=== PATIENT | female | born 1995 | race Caucasian/White ===

== ENCOUNTER → 2018-12-21 | Outpatient (CLI) | payer OTHER, SELFPAY ==
[2018-12-21 16:51] VITALS: BMI 47.0
[2018-12-21 19:27] LABS: Chlamydia Trachomatis by PCR Negative (Negative); Neisserai gonorrhoeae by PCR Negative (Negative); Probe Check PASS; Sample Adequacy Control PASS; Specimen Processing Control PASS
[2018-12-25 09:17] LABS: HPV Reflexed? NOT INDICATED
== END | disposition home or self-care (01) ==
LOC: LABSPEC 17:15
PROVIDERS: Referring Provider Obstetrics & Gynecology; Visit Provider Obstetrics & Gynecology
DX: O09.90 Supervision of high risk pregnancy, unspecified, unspecified trimester (principal); Z12.4 Encounter for screening for malignant neoplasm of cervix; Z3A.00 Weeks of gestation of pregnancy not specified
CPT/HCPCS: 87086; 87088; 87186; 87491; 87591; 87624; 88175; G0145

== ENCOUNTER → 2018-12-23 | Outpatient (CLI) | payer OTHER, SELFPAY ==
[2018-12-21 16:51] VITALS: BMI 47.0
[2018-12-23 09:37] LABS: Absolute Lymphocyte Count 1.58 X10^3/uL (0.83-4.51); Absolute Neutrophil Count 6.7 X10^3/uL (2.0-7.7); Basophil# 0.03 X10^3/uL; Basophil% 0.3 % (0-1); Eosinophil# 0.03 X10^3/uL; Eosinophils% 0.3 % (0-5); Hematocrit 36.5 % (37-47); Hemoglobin 12.1 g/dL (12.0-15.0); Lymphocyte # 1.58 X10^3/ul (4.0); Lymphocyte % 17.6 % (19-41); Mean Corp Hgb Conc 33.2 g/dL (32-36); Mean Corpuscular Hgb 28.9 pg (27.0-32.0); Mean Corpuscular Volume 87.1 fL (81-99); Mean Platelet Vol. 10.3 fl (6.2-12.0); Monocyte% 6.7 % (0-10); NRBC Flagged by Analyzer 0 % (0-5); Neutrophil # 6.71 X10^3/uL (2.7-7.7); Neutrophil % 74.7 % (47-70); Platelet Count 264 K/mm3 (150-450); RBC Distribution Width CV 13.3 % (11.6-14.6); RBC Distribution Width SD 41.5 fl (35.1-43.9); Red Blood Count 4.19 M/mm3 (4.2-5.4)
[2018-12-23 10:56] LABS: HIV - WCH Non-Reactive (Nonreactive); Hepatitis B Surface Antigen Non-Reactive (Nonreactive); Rubella IgG 44.6 IU/mL
[2018-12-30 02:05] LABS: Rapid Plasmin Reagin (RPR) NONREACTIVE (NONREACTIVE)
== END | disposition home or self-care (01) ==
PROVIDERS: Referring Provider Obstetrics & Gynecology; Visit Provider Obstetrics & Gynecology
DX: O09.90 Supervision of high risk pregnancy, unspecified, unspecified trimester (principal); Z3A.00 Weeks of gestation of pregnancy not specified
CPT/HCPCS: 36415; 85025; 86592; 86703; 86762; 86850; 86900; 86901; 87340

== ENCOUNTER → 2018-12-28 | Outpatient (CLI) | payer OTHER, SELFPAY ==
[2018-12-21 16:51] VITALS: BMI 47.0
[2018-12-28 11:52] LABS: Absolute Lymphocyte Count 1.36 X10^3/uL (0.83-4.51); Absolute Neutrophil Count 7.3 X10^3/uL (2.0-7.7); Basophil# 0.02 X10^3/uL; Basophil% 0.2 % (0-1); Eosinophil# 0.03 X10^3/uL; Eosinophils% 0.3 % (0-5); Hematocrit 36.4 % (37-47); Hemoglobin 11.8 g/dL (12.0-15.0); Lymphocyte # 1.36 X10^3/ul (4.0); Lymphocyte % 14.7 % (19-41); Mean Corp Hgb Conc 32.4 g/dL (32-36); Mean Corpuscular Hgb 27.9 pg (27.0-32.0); Mean Corpuscular Volume 86.1 fL (81-99); Mean Platelet Vol. 10.5 fl (6.2-12.0); Monocyte# 0.47 X10^3/uL; Monocyte% 5.1 % (0-10); NRBC Flagged by Analyzer 0 % (0-5); Neutrophil % 79.2 % (47-70); Platelet Count 228 K/mm3 (150-450); RBC Distribution Width CV 13.3 % (11.6-14.6); RBC Distribution Width SD 41.8 fl (35.1-43.9); Red Blood Count 4.23 M/mm3 (4.2-5.4); White Blood Count 9.2 K/mm3 (4.4-11.0)
[2018-12-28 12:25] LABS: Glucose Challenge Gest 1H 50g 110 mg/dL (70-140)
== END | disposition home or self-care (01) ==
LOC: PAVLAB 10:45
PROVIDERS: Referring Provider Obstetrics & Gynecology; Visit Provider Obstetrics & Gynecology
DX: Z34.90 Encounter for supervision of normal pregnancy, unspecified, unspecified trimester (principal); O09.90 Supervision of high risk pregnancy, unspecified, unspecified trimester; Z3A.00 Weeks of gestation of pregnancy not specified
CPT/HCPCS: 36415; 82950; 85025

== ENCOUNTER → 2019-01-18 14:17 | Outpatient (CLI) | payer OTHER, SELFPAY ==
[2019-01-18 09:08] VITALS: BMI 47.0
== END ==
PROVIDERS: Visit Provider Obstetrics & Gynecology
DX: O99.89 Other specified diseases and conditions complicating pregnancy, childbirth and the puerperium (principal); R82.71 Bacteriuria; Z3A.00 Weeks of gestation of pregnancy not specified
CPT/HCPCS: 87086; 87088

== ENCOUNTER → 2019-04-24 10:03 | Outpatient (CLI) | payer OTHER, SELFPAY ==
[2019-04-12 08:53] VITALS: BMI 47.0
[2019-04-24 10:15] LABS: Absolute Lymphocyte Count 1.34 X10^3/uL (0.83-4.51); Absolute Neutrophil Count 8.7 X10^3/uL (2.0-7.7); Basophil# 0.02 X10^3/uL; Basophil% 0.2 % (0-1); Eosinophil# 0.05 X10^3/uL; Eosinophils% 0.5 % (0-5); Hematocrit 36.1 % (37-47); Lymphocyte # 1.34 X10^3/ul (4.0); Lymphocyte % 12.7 % (19-41); Mean Corp Hgb Conc 33.2 g/dL (32-36); Mean Corpuscular Hgb 28.3 pg (27.0-32.0); Mean Corpuscular Volume 85.1 fL (81-99); Mean Platelet Vol. 10.6 fl (6.2-12.0); Monocyte# 0.44 X10^3/uL; Monocyte% 4.2 % (0-10); NRBC Flagged by Analyzer 0 % (0-5); Neutrophil # 8.69 X10^3/uL (2.7-7.7); Platelet Count 208 K/mm3 (150-450); RBC Distribution Width CV 13.2 % (11.6-14.6); RBC Distribution Width SD 40.7 fl (35.1-43.9); Red Blood Count 4.24 M/mm3 (4.2-5.4); White Blood Count 10.6 K/mm3 (4.4-11.0)
[2019-04-24 10:32] LABS: Glucose Challenge Gest 1H 50g 136 mg/dL (70-140)
== END ==
PROVIDERS: Visit Provider Obstetrics & Gynecology
DX: O09.90 Supervision of high risk pregnancy, unspecified, unspecified trimester (principal); Z3A.00 Weeks of gestation of pregnancy not specified
CPT/HCPCS: 82950; 85025

== ENCOUNTER → 2019-05-03 09:56 | Outpatient (CLI) | payer OTHER, SELFPAY ==
[2019-04-24 10:24] VITALS: BMI 47.0
[2019-05-03 11:30] LABS: Glucose GTT-Gestation. Fasting 80 mg/dL (<105)
[2019-05-03 13:01] LABS: Glucose GTT-Gestational 1 Hr 94 mg/dL (<190)
[2019-05-03 13:47] LABS: Glucose GTT-Gestational 3 Hr 97 L (<145)
[2019-05-03 14:01] LABS: Glucose GTT-Gestational 2 Hr 89 mg/dL (<165)
== END ==
PROVIDERS: Referring Provider Obstetrics & Gynecology; Visit Provider Obstetrics & Gynecology
DX: O99.810 Abnormal glucose complicating pregnancy (principal); Z3A.00 Weeks of gestation of pregnancy not specified
CPT/HCPCS: 36415; 82951; 82952

== ENCOUNTER → 2019-05-04 11:52 | Outpatient (CLI) | payer OTHER, SELFPAY ==
[2019-05-04 11:27] VITALS: BMI 47.0
[2019-05-04 12:21] LABS: Absolute Lymphocyte Count 1.41 X10^3/uL (0.83-4.51); Absolute Neutrophil Count 7.3 X10^3/uL (2.0-7.7); Basophil# 0.03 X10^3/uL; Basophil% 0.3 % (0-1); Eosinophil# 0.03 X10^3/uL; Eosinophils% 0.3 % (0-5); Hematocrit 34.9 % (37-47); Hemoglobin 11.8 g/dL (12.0-15.0); Lymphocyte # 1.41 X10^3/ul (4.0); Lymphocyte % 15.1 % (19-41); Mean Corp Hgb Conc 33.8 g/dL (32-36); Mean Corpuscular Hgb 28.3 pg (27.0-32.0); Mean Corpuscular Volume 83.7 fL (81-99); Mean Platelet Vol. 10.7 fl (6.2-12.0); Monocyte# 0.51 X10^3/uL; Monocyte% 5.5 % (0-10); NRBC Flagged by Analyzer 0 % (0-5); Neutrophil # 7.32 X10^3/uL (2.7-7.7); Neutrophil % 78.4 % (47-70); Platelet Count 241 K/mm3 (150-450); RBC Distribution Width CV 13.2 % (11.6-14.6); RBC Distribution Width SD 40.4 fl (35.1-43.9); Red Blood Count 4.17 M/mm3 (4.2-5.4); White Blood Count 9.3 K/mm3 (4.4-11.0)
[2019-05-04 12:32] LABS: ALB/GLOB Ratio 0.7 RATIO (0.9-2.4); AST(SGOT) 84 U/L (15-37); Alanine Aminotransfer ALT/SGPT 175 U/L (13-56); Albumin, Serum 2.6 g/dL (3.2-5.0); Alkaline Phosphatase 116 U/L (45-117); Anion Gap 7 (5-15); BUN 5 mg/dL (7-18); BUN/Creat Ratio 9.5 RATIO (10-20); Calcium,Total 8.8 mg/dL (8.5-10.1); Chloride 109 mmol/L (98-107); Creatinine, Serum 0.53 mg/dL (0.55-1.02); EST Glomerular Filtration Rate 149 mL/min (>60); Est Glom Filt Rate - Afr Amer 181 mL/min (>60); Globulin 3.9 g/dL (2.2-4.2); Glucose 78 mg/dL (74-106); LDH 198 U/L (84-246); Potassium 3.6 mmol/L (3.5-5.1); Protein, Total 6.5 g/dL (6.4-8.2); Sodium Level 138 mmol/L (136-145); Uric Acid 3.2 mg/dL (2.6-6.0)
[2019-05-04 13:57] LABS: Protein, Urine (Random) 43.8 mg/dL (<11.9); Protein:Creat Ratio 219 mg/g CRE (0-200)
== END ==
PROVIDERS: Referring Provider Nurse Practitioner Women's Health; Visit Provider Nurse Practitioner Women's Health
DX: O09.90 Supervision of high risk pregnancy, unspecified, unspecified trimester (principal); Z3A.00 Weeks of gestation of pregnancy not specified
CPT/HCPCS: 36415; 80053; 82570; 83615; 84156; 84550; 85025

== ENCOUNTER → 2019-05-05 13:41 | Outpatient (CLI) | payer OTHER, SELFPAY ==
[2019-05-04 11:27] VITALS: BMI 47.0
--- NOTE | 2019-05-05 13:41 | US_ITS ---
STUDY: SECOND AND THIRD TRIMESTER OBSTETRICAL ULTRASOUND - LIMITED REASON FOR EXAM: Female, 24 years old GROWTH LMP: October 17, 2018. PRIOR ULTRASOUND: None. TECHNIQUE: Transabdominal TECHNICAL QUALITY: Adequate. FINDINGS: There is a single intrauterine fetus. The fetus is in a cephalic presentation. There is demonstrated cardiac activity with a heart rate of 153 bpm. There is a normal amniotic fluid volume. The largest amniotic fluid pocket measures 3.8 cm x 5.9 cm. The amniotic fluid index (AME) is within normal limits. The placenta is anterior in location and is not low lying. There are Grade 1 placental changes. The cervix measures 3.3 cm in length. BIOMETRY: BPD: 7.19 cm: 29 weeks, 0 days HC: 26.28 cm: 28 weeks, 5 days AC: 24.64 cm: 29 weeks, 0 days FL: 5.29 cm: 28 weeks, 1 days Age by LMP: 28 weeks, 4 days. MARIOLA by LMP: July 24, 2019. age by current US: 28 weeks, 5 days. MARIOLA by current US: July 23, 2019. Estimated weight: 1253 grams, +/- 183 grams, 38 percentile. US/OB Limited With Biometrics IMPRESSION: Single live intrauterine gestation with a mean gestational age of 28 weeks and 5 days. Electronically Signed: Gabe Mosley, at 15:30 EST , Service support ,
[2019-05-07 16:07] LABS: HEPATITIS B SURFACE AG Negative (Negative); Hepatitis A AB, Total Negative (Negative); Hepatitis A IgM Antibody Negative (Negative); Hepatitis B Core AB IgM Negative (Negative); Hepatitis B Core Ab Total Negative (Negative); Hepatitis C Ab <0.1 s/co ratio (0.0-0.9)
[2019-05-09 10:22] LABS: Hep B Surface Antibodies Non Reactive (.)
== END ==
PROVIDERS: Referring Provider Obstetrics & Gynecology; Visit Provider Obstetrics & Gynecology
DX: O99.212 Obesity complicating pregnancy, second trimester (principal); E66.9 Obesity, unspecified; O09.90 Supervision of high risk pregnancy, unspecified, unspecified trimester; O99.810 Abnormal glucose complicating pregnancy; O99.89 Other specified diseases and conditions complicating pregnancy, childbirth and the puerperium; R74.8 Abnormal levels of other serum enzymes; R82.71 Bacteriuria; Z3A.28 28 weeks gestation of pregnancy
CPT/HCPCS: 36415; 76816; 86704; 86705; 86706; 86708; 86709; 86803; 87340

== ENCOUNTER → 2019-05-09 07:48 | Outpatient (CLI) | payer OTHER, SELFPAY ==
[2019-05-05 15:09] VITALS: BMI 47.0
[2019-05-05 15:35] VITALS: BMI 47.0
--- NOTE | 2019-05-09 07:49 | US_ITS ---
STUDY: OBSTETRICAL ULTRASOUND - BIOPHYSICAL PROFILE REASON FOR EXAM: Female, 24 years old ELEVATED LIVER ENZYMES -- OBESITY AFFECTING LMP: October 17, 2018 PRIOR ULTRASOUND: Comparison is made with prior study dated May 05, 2019. TECHNIQUE: Transabdominal TECHNICAL QUALITY: Adequate. FINDINGS: There is a single intrauterine fetus. The fetus is in a cephalic presentation. There is demonstrated cardiac activity with a heart rate of 156 bpm. There is a normal amniotic fluid volume. The largest amniotic fluid pocket measures 5.9 x 2.4 cm. The amniotic fluid index (AME) is 15.6 cm. The placenta is anterior in location and is not low lying. There are Grade 1 placental changes. The cervix measures 3.7 cm in length. Age by LMP: 29 weeks, 1 days. MARIOLA by LMP: July 24, 2019. age by prior US: 29 weeks, 2 days. MARIOLA by prior US: July 23, 2019. BIOPHYSICAL PROFILE: Breathing Movements (FBM): 2 Gross Body Movements (GBM): 2 Tone (FT): 2 Amniotic Fluid Volume (AFV): 2 TOTAL SCORE: 8 / 8 US/Biophysical Profile IMPRESSION: Normal biophysical profile of 12/01. Electronically Signed: Gabe Mosley, at 9:17 EST , Service support ,
== END ==
PROVIDERS: Referring Provider Obstetrics & Gynecology; Visit Provider Obstetrics & Gynecology
DX: R74.8 Abnormal levels of other serum enzymes (principal)
CPT/HCPCS: 76818

== ENCOUNTER → 2019-05-15 07:36 | Outpatient (CLI) | payer OTHER, SELFPAY ==
[2019-05-05 15:35] VITALS: BMI 47.0
[2019-05-12 09:46] VITALS: BMI 45.9
--- NOTE | 2019-05-15 07:40 | US_ITS ---
STUDY: OBSTETRICAL ULTRASOUND - BIOPHYSICAL PROFILE REASON FOR EXAM: Female, 24 years old elevated liver enzymes and obesity LMP: October 17, 2018 PRIOR ULTRASOUND: None. TECHNIQUE: Transabdominal TECHNICAL QUALITY: Adequate. FINDINGS: There is a single intrauterine fetus. The fetus is in a cephalic presentation. There is demonstrated cardiac activity with a heart rate of 153 bpm. There is a normal amniotic fluid volume. The largest amniotic fluid pocket measures 5.46 cm. The amniotic fluid index (AME) is 14.19 cm. The placenta is anterior in location and is not low lying. There are Grade 1 placental changes. BIOPHYSICAL PROFILE: Breathing Movements (FBM): 2 Gross Body Movements (GBM): 2 Tone (FT): 2 Amniotic Fluid Volume (AFV): 2 TOTAL SCORE: US/Biophysical Profile IMPRESSION: Normal biophysical profile of 12/01. Electronically Signed: Gabe Mosley, at 12:54 EST , Service support ,
== END ==
PROVIDERS: Referring Provider Obstetrics & Gynecology; Visit Provider Obstetrics & Gynecology
DX: Z34.90 Encounter for supervision of normal pregnancy, unspecified, unspecified trimester (principal)
CPT/HCPCS: 76818

== ENCOUNTER → 2019-06-02 09:44 | Outpatient (CLI) | payer OTHER, SELFPAY ==
[2019-06-02 09:13] VITALS: BMI 45.9
[2019-06-02 10:53] LABS: ALB/GLOB Ratio 0.6 RATIO (0.9-2.4); AST(SGOT) 83 U/L (15-37); Alanine Aminotransfer ALT/SGPT 212 U/L (13-56); Albumin, Serum 2.5 g/dL (3.2-5.0); Alkaline Phosphatase 108 U/L (45-117); Anion Gap 6 (5-15); BUN 9 mg/dL (7-18); BUN/Creat Ratio 14.5 RATIO (10-20); Calcium,Total 8.7 mg/dL (8.5-10.1); Chloride 111 mmol/L (98-107); Creatinine, Serum 0.62 mg/dL (0.55-1.02); EST Glomerular Filtration Rate 123 mL/min (>60); Est Glom Filt Rate - Afr Amer 149 mL/min (>60); Globulin 4.2 g/dL (2.2-4.2); Glucose 73 mg/dL (74-106); Potassium 3.8 mmol/L (3.5-5.1); Protein, Total 6.7 g/dL (6.4-8.2); Sodium Level 139 mmol/L (136-145)
== END ==
PROVIDERS: Referring Provider Obstetrics & Gynecology; Visit Provider Obstetrics & Gynecology
DX: O26.619 Liver and biliary tract disorders in pregnancy, unspecified trimester (principal); K83.1 Obstruction of bile duct; Z3A.00 Weeks of gestation of pregnancy not specified
CPT/HCPCS: 36415; 80053

== ENCOUNTER → 2019-06-09 13:59 | Outpatient (CLI) | payer OTHER, SELFPAY ==
[2019-06-02 09:13] VITALS: BMI 45.9
[2019-06-09 16:10] LABS: ALB/GLOB Ratio 0.4 RATIO (0.9-2.4); AST(SGOT) 22 U/L (15-37); Alanine Aminotransfer ALT/SGPT 42 U/L (13-56); Albumin, Serum 2.3 g/dL (3.2-5.0); Alkaline Phosphatase 139 U/L (45-117); Anion Gap 7 (5-15); BUN 7 mg/dL (7-18); BUN/Creat Ratio 11.7 RATIO (10-20); Calcium,Total 9.1 mg/dL (8.5-10.1); Chloride 105 mmol/L (98-107); EST Glomerular Filtration Rate 129 mL/min (>60); Est Glom Filt Rate - Afr Amer 156 mL/min (>60); Globulin 5.2 g/dL (2.2-4.2); Glucose 64 mg/dL (74-106); Potassium 3.6 mmol/L (3.5-5.1); Protein, Total 7.5 g/dL (6.4-8.2); Sodium Level 136 mmol/L (136-145)
== END ==
PROVIDERS: Referring Provider Obstetrics & Gynecology; Visit Provider Obstetrics & Gynecology
DX: O26.619 Liver and biliary tract disorders in pregnancy, unspecified trimester (principal); K83.1 Obstruction of bile duct; Z3A.00 Weeks of gestation of pregnancy not specified
CPT/HCPCS: 36415; 80053

== ENCOUNTER 2019-06-16 09:04 | Outpatient (CLI) | payer OTHER, SELFPAY ==
[2019-06-16 08:44] VITALS: BMI 46.0
[2019-06-16 09:20] LABS: Absolute Lymphocyte Count 1.62 X10^3/uL (0.83-4.51); Basophil# 0.03 X10^3/uL; Basophil% 0.3 % (0-1); Eosinophil# 0.04 X10^3/uL; Eosinophils% 0.3 % (0-5); Hematocrit 36.2 % (37-47); Lymphocyte # 1.62 X10^3/ul (4.0); Lymphocyte % 13.9 % (19-41); Mean Corp Hgb Conc 33.1 g/dL (32-36); Mean Corpuscular Hgb 27.7 pg (27.0-32.0); Mean Corpuscular Volume 83.6 fL (81-99); Mean Platelet Vol. 10.5 fl (6.2-12.0); Monocyte# 0.83 X10^3/uL; Monocyte% 7.1 % (0-10); NRBC Flagged by Analyzer 0 % (0-5); Neutrophil # 9.03 X10^3/uL (2.7-7.7); Neutrophil % 77.8 % (47-70); Platelet Count 325 K/mm3 (150-450); RBC Distribution Width CV 12.8 % (11.6-14.6); RBC Distribution Width SD 38.6 fl (35.1-43.9); Red Blood Count 4.33 M/mm3 (4.2-5.4); White Blood Count 11.6 K/mm3 (4.4-11.0)
[2019-06-16 09:33] LABS: Protein, Urine (Random) 49.1 mg/dL (<11.9); Protein:Creat Ratio 205 mg/g CRE (0-200)
[2019-06-16 09:44] LABS: ALB/GLOB Ratio 0.5 RATIO (0.9-2.4); AST(SGOT) 28 U/L (15-37); Alanine Aminotransfer ALT/SGPT 51 U/L (13-56); Albumin, Serum 2.3 g/dL (3.2-5.0); Alkaline Phosphatase 136 U/L (45-117); Anion Gap 8 (5-15); BUN 11 mg/dL (7-18); BUN/Creat Ratio 17.5 RATIO (10-20); Calcium,Total 9.1 mg/dL (8.5-10.1); Chloride 106 mmol/L (98-107); Creatinine, Serum 0.63 mg/dL (0.55-1.02); EST Glomerular Filtration Rate 122 mL/min (>60); Est Glom Filt Rate - Afr Amer 147 mL/min (>60); Globulin 4.9 g/dL (2.2-4.2); Glucose 68 mg/dL (74-106); Protein, Total 7.2 g/dL (6.4-8.2); Sodium Level 136 mmol/L (136-145)
[2019-06-16 09:48] VITALS: BMI 46.0
[2019-06-16] MEDS: Betamethasone/Betamethasone 30 MG/5 ML Vial 12 MG IM (10:27)
--- NOTE | 2019-06-19 11:37 | OB.TRI.PN ---
Progress Notes Date of Service: 06/16/19 Progress Note: celestone dose for prematurity and gestational hypertension given Laboratory Studies: Laboratory Tests 06/16/19 06/16/19 06/16/19 Range/Units 09:11 09:11 08:45 WBC 11.6 H (4.4-11.0) K/mm3 RBC 4.33 (4.2-5.4) M/mm3 Hgb 12.0 (12.0-15.0) g/dL Hct 36.2 L (37-47) % MCV 83.6 (81-99) fL MCH 27.7 (27.0-32.0) pg MCHC 33.1 (32-36) g/dL RDW Std Deviation 38.6 (35.1-43.9) fl RDW Coeff of Kiera 12.8 (11.6-14.6) % Plt Count 325 (150-450) K/mm3 MPV 10.5 (6.2-12.0) fl Immature Gran % (Auto) 0.600 (0.0-0.9) % Neut % (Auto) 77.8 H (47-70) % Lymph % (Auto) 13.9 L (19-41) % [place] % (Auto) 7.1 (0-10) % Eos % (Auto) 0.3 (0-5) % Baso % (Auto) 0.3 (0-1) % Absolute Neuts (auto) 9.0 H (2.0-7.7) X10^3/uL Absolute Lymphs (auto) 1.62 (0.83-4.51) X10^3/uL Nucleated RBC % 0 (0-5) % Sodium 136 (136-145) mmol/L Potassium 4.0 (3.5-5.1) mmol/L Chloride 106 (98-107) mmol/L Carbon Dioxide 22.0 (21.0-32.0) mmol/L Anion Gap 8 (5-15) BUN 11 (7-18) mg/dL Creatinine 0.63 (0.55-1.02) mg/dL Est GFR (MDRD) Af Amer 147 (>60) mL/min Est GFR (MDRD) Non-Af 122 (>60) mL/min BUN/Creatinine Ratio 17.5 (10-20) RATIO Glucose 68 L (74-106) mg/dL Calcium 9.1 (8.5-10.1) mg/dL Total Bilirubin 0.20 (0.20-1.00) mg/dL AST 28 (15-37) U/L ALT 51 (13-56) U/L Alkaline Phosphatase 136 H (45-117) U/L Total Protein 7.2 (6.4-8.2) g/dL Albumin 2.3 L (3.2-5.0) g/dL Globulin 4.9 H (2.2-4.2) g/dL Albumin/Globulin Ratio 0.5 L (0.9-2.4) RATIO U Random Total Protein 49.1 H (<11.9) mg/dL Urine Creatinine 239.00 (NO RANGE EST.) mg/dL Protein/Creatinin Ratio 205 H (0-200) mg/g CRE
== END 2019-06-16 10:20 | disposition home or self-care (01) ==
LOC: PAVLAB 09:05 → WPOUT 09:47 → WP 09:47
PROVIDERS: Referring Provider Obstetrics & Gynecology; Visit Provider Obstetrics & Gynecology
DX: O13.9 Gestational [pregnancy-induced] hypertension without significant proteinuria, unspecified trimester (principal); O09.90 Supervision of high risk pregnancy, unspecified, unspecified trimester; Z3A.00 Weeks of gestation of pregnancy not specified
CPT/HCPCS: 36415; 80053; 82570; 84156; 85025; 96372; 99218; G0378; J0702

== ENCOUNTER 2019-06-17 10:05 | Outpatient (CLI) | payer OTHER, SELFPAY ==
[2019-06-16 09:48] VITALS: BMI 46.0
[2019-06-17 10:26] VITALS: BMI 45.3
[2019-06-17] MEDS: Betamethasone/Betamethasone 30 MG/5 ML Vial 12 MG IM (10:59)
--- NOTE | 2019-06-19 11:36 | OB.TRI.PN ---
Progress Notes Date of Service: 06/16/19 Progress Note: celestone dose for prematurity and GHTN
== END 2019-06-17 11:00 | disposition home or self-care (01) ==
LOC: WPOUT 10:11 → WP 10:12
PROVIDERS: Referring Provider Obstetrics & Gynecology; Visit Provider Obstetrics & Gynecology
DX: O13.9 Gestational [pregnancy-induced] hypertension without significant proteinuria, unspecified trimester (principal); Z3A.00 Weeks of gestation of pregnancy not specified
CPT/HCPCS: 96372; 99218; G0378; J0702

== ENCOUNTER → 2019-06-23 11:27 | Outpatient (CLI) | payer OTHER, SELFPAY ==
[2019-06-23 11:01] VITALS: BMI 45.3
[2019-06-23 12:08] LABS: ALB/GLOB Ratio 0.5 RATIO (0.9-2.4); AST(SGOT) 24 U/L (15-37); Alanine Aminotransfer ALT/SGPT 50 U/L (13-56); Albumin, Serum 2.5 g/dL (3.2-5.0); Alkaline Phosphatase 134 U/L (45-117); Anion Gap 8 (5-15); BUN 9 mg/dL (7-18); BUN/Creat Ratio 12.6 RATIO (10-20); Chloride 106 mmol/L (98-107); Creatinine, Serum 0.71 mg/dL (0.55-1.02); EST Glomerular Filtration Rate 105 mL/min (>60); Est Glom Filt Rate - Afr Amer 127 mL/min (>60); Glucose 90 mg/dL (74-106); Potassium 3.9 mmol/L (3.5-5.1); Protein, Total 7.5 g/dL (6.4-8.2); Sodium Level 137 mmol/L (136-145)
== END ==
PROVIDERS: Referring Provider Obstetrics & Gynecology; Visit Provider Obstetrics & Gynecology
DX: O26.619 Liver and biliary tract disorders in pregnancy, unspecified trimester (principal); K83.1 Obstruction of bile duct; Z3A.00 Weeks of gestation of pregnancy not specified
CPT/HCPCS: 36415; 80053

== ENCOUNTER → 2019-06-23 | Outpatient (CLI) | payer OTHER, SELFPAY ==
[2019-06-23 11:01] VITALS: BMI 45.3
[2019-06-23 11:29] LABS: Protein, Urine (Random) 28.1 mg/dL (<11.9); Protein:Creat Ratio 184 mg/g CRE (0-200)
== END | disposition home or self-care (01) ==
LOC: LABSPEC 11:09
PROVIDERS: Referring Provider Obstetrics & Gynecology; Visit Provider Obstetrics & Gynecology
DX: O26.619 Liver and biliary tract disorders in pregnancy, unspecified trimester (principal); K83.1 Obstruction of bile duct; O16.3 Unspecified maternal hypertension, third trimester; Z3A.00 Weeks of gestation of pregnancy not specified
CPT/HCPCS: 82570; 84156

== ENCOUNTER → 2019-06-28 | Outpatient (CLI) | payer OTHER, SELFPAY ==
[2019-06-28 10:41] VITALS: BMI 45.3
== END | disposition home or self-care (01) ==
LOC: LABSPEC 17:14
PROVIDERS: Referring Provider Obstetrics & Gynecology; Visit Provider Obstetrics & Gynecology
DX: O09.90 Supervision of high risk pregnancy, unspecified, unspecified trimester (principal); Z3A.00 Weeks of gestation of pregnancy not specified
CPT/HCPCS: 87077; 87081; 87186

== ENCOUNTER 2019-07-03 06:49 | Inpatient (IN) | payer OTHER, SELFPAY ==
[2019-06-28 10:41] VITALS: BMI 45.3
[2019-07-03] VITALS (20 sets, daily range): BP systolic 116–155; BP diastolic 61–91; PULSE 58–90; RESP 14–18; TEMP 36.3–37.3; O2SAT 97–100; BMI 46.2
--- NOTE | 2019-07-03 | PLAC_PTH ---
PATIENT: CLIVE RAPP LOC: [facility] U#:[id number] AGE/SX: 24/F ROOM: WP003 RE07/03/[address]: Dr. Roya Robertson MD : 1995 BED: 1 DIS: 07/05/2019 SPEC #: [id number] RECD: 07/03/19 21:56 STATUS: NAE RENicole #: [id number] YAYO: 07/03/19 00:[address]: Roya Robertson DEPT: SURGICAL PATHOLOGY RECD BY: Sage Gupta ENTERED: 07/04/19 08:00 SP TYPE: PLACENTA OTHR DR: No Primary Care Phys Tissues: Placenta, NOS Procedures: Surgery Specimen Level V HEADER OPERATION: section PRE-OP DIAGNOSIS: Abruption, cholestasis, GHTN TISSUE SUBMITTED: Placenta MICROSCOPIC DIAGNOSIS Vargas placenta (498 gm): Umbilical cord - trivascular with no inflammation. Placental membranes - no evidence of inflammation. Placental disc - foci of organizing intraparenchymal hemorrhage, increased intraparenchymal fibrin plaques, Avani-Amilcar change and intravillous congestion. AM:corey 07/06/19 MICROSCOPIC DESCRIPTION Slides are reviewed. GROSS DESCRIPTION SPECIMEN: PLACENTA / CLINICAL INFORMATION: A. Weight: 2.57 kg B. Gestational Age: 37 weeks C. Sex: Female PLACENTAL WEIGHT (POST FIXATION): 498 gm PLACENTAL DIMENSIONS: 17 x 12.5 x 5 cm PLACENTAL SHAPE: Usual ovoid PLACENTAL WEIGHT FOR GESTATIONAL AGE: Within 10-99th percentile MEMBRANES - Present A. Insertion: Marginal B. Site of rupture from edge: 4 cm from edge of placental disc C. Color of membrane: Smith-khalil D. Abnormalities: None UMBILICAL CORD - Present A. Color: Smith-khalil B. Insertion: Marginal C. Length: 34 cm D. Diameter: 1 cm E. Number of vessels: Three F. Abnormalities: Increased spiraling of the umbilical cord is noted. PLACENTAL DISC - Present A. Color of surface: Smith-khalil B. surface abnormalities: None C. Maternal cotyledons: Intact with minimal tears D. Attached retro placental clot: No clot E. Cut surface: Dark red and spongy F. Lesions: Sections reveal a small smith, indurated lesion measuring 0.7 cm in greatest dimension. G. Separate clot: Absent SECTIONS SUBMITTED: 1. Membrane roll 2. Cord, maternal end 3. Cord, end 4. Placental disc, and maternal surfaces, lesion 5. Placental disc, and maternal surfaces 6. Placental disc, and maternal surfaces BROOKE:corey 07/05/19 TC:5 CPT: 31590
[2019-07-03] MEDS: Lactated Ringers 1,000 ML 50 ML IV (07:50)
[2019-07-03 08:09] LABS: Absolute Lymphocyte Count 1.81 X10^3/uL (0.83-4.51); Absolute Neutrophil Count 7.9 X10^3/uL (2.0-7.7); Basophil# 0.02 X10^3/uL; Basophil% 0.2 % (0-1); Eosinophil# 0.05 X10^3/uL; Eosinophils% 0.5 % (0-5); Hematocrit 35.3 % (37-47); Hemoglobin 11.6 g/dL (12.0-15.0); Lymphocyte # 1.81 X10^3/ul (4.0); Lymphocyte % 17.2 % (19-41); Mean Corp Hgb Conc 32.9 g/dL (32-36); Mean Corpuscular Hgb 27.6 pg (27.0-32.0); Mean Corpuscular Volume 83.8 fL (81-99); Mean Platelet Vol. 11.1 fl (6.2-12.0); Monocyte# 0.72 X10^3/uL; Monocyte% 6.9 % (0-10); NRBC Flagged by Analyzer 0 % (0-5); Neutrophil # 7.87 X10^3/uL (2.7-7.7); Neutrophil % 74.8 % (47-70); Platelet Count 259 K/mm3 (150-450); RBC Distribution Width CV 13.4 % (11.6-14.6); RBC Distribution Width SD 41.1 fl (35.1-43.9); Red Blood Count 4.21 M/mm3 (4.2-5.4); White Blood Count 10.5 K/mm3 (4.4-11.0)
[2019-07-03] MEDS: Oxytocin 30 units/NS 500 ml 30 UNITS/500 ML IV.SOLN IV (08:35)
[2019-07-03] MEDS: 0.9% Normal Saline Single 100 ML IV.SOLN. IY (08:43)
--- NOTE | 2019-07-03 10:36 | HP.PCM_ITS ---
- Problem List (1) Abnormal glucose affecting Status: Acute Comment: normal 3gtt (2) Bacteriuria during Status: Acute Comment: treated, repeat culture-neg (3) Cholestasis during Status: Acute Comment: MFM consult. 2x weekly testing BPP. Actigall. deliver at 37, weekly CMP. Liver enzymes normal week on 06/09. BPP normal on 06/08. Growth in 4 weeks (4) Elevated blood pressure affecting in third trimester, antepartum Status: Acute Comment: home bp monitoring, reviewed preeclampsia precautions handout given, labs weekly. plan delivery at 37. BMZ 06/16- (5) Obesity affecting Status: Acute Qualifiers: Comment: 1 tm glucola nl, encourage healthy weight gain (6) Status: Acute Qualifiers: Comment: Discussed genetic, carrier and NTD-declined. MFM Anatomy US normal FU with adequate growth. (7) Supervision of high risk , antepartum Status: Acute Comment: PRR MARIOLA 07/24/19 girl deana Spouse Leonardo History and Physical Date of Admission: 07/03/19 Intake Vital Signs 06/28/19 Height 5 ft 5 in 06/28/19 Weight: 274 lb 6 oz 06/28/19 BMI 45.6 06/28/19 BP 129/85 H Intake Visit Reasons: 36 WK OB/NST Automatic Silk Screen Printer Required: No Is patient in pain?: No Allergies coconut Allergy (Mild, Verified 06/28/19 10:39) Hives Penicillins Allergy (Mild, Verified 06/28/19 10:39) Nausea apricot Allergy (Verified 06/28/19 10:39) Unknown Beef Containing Products Adverse Reaction (Verified 06/28/19 10:39) Diarrhea Medications multivitamin no.47-iron fum 27 mg-folate no.1 1 mg-dha 300 mg capsule 1 cap PO DAILY cap 12/21/18 [History Confirmed 06/28/19] ursodiol 300 mg capsule 300 mg PO BID #60 cap 05/05/19 [Rx Confirmed 06/28/19] Betamethasone Acetate,Sod Phos [Celestone Soluspan 30 mg/5 ml] 12 mg IM DAILY 06/16/19 [History Confirmed 06/28/19] blood pressure kit-extra large See Rx Instructions .ROUTE .MEDSUPPLY #1 ea 06/16/19 [Rx Confirmed 06/28/19] Last Menstral Period: 10/17/18 Zika: Zika virus screening: Negative : No PFSH PFSH Medical History H/O Clostridium difficile infection (Acute) Obesity affecting (Acute) Surgical History Broken arm (Acute) Family History Mother Diabetes Social History (Updated 06/28/19 @ 11:[address] 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 [place] pets and animals: Yes history of recent travel: No sexually active: Yes Smoking Status: Never smoker second hand exposure: No alcohol intake: current alcohol intake frequency: holidays/special occasions only substance use type: does not use seatbelt use: always do you feel safe at home: Yes additional social history: - [place]- [facility] [employer] Pregancy History 1 Elective abortions Hx Para 0 Spontaneous abortions Hx # Term Pregnancies Ectopic pregnancies Hx # Pregnancies Multiple births # of living children 0 HPI 36 WK OB/NST: Details: CLIVE HAMILTON is a 24 year old who presents for IOL secondary to cholestasis and GHTN. she is doing well and has had reassuring testing. liver enzymes were initially high and have improved. OB Visit MARIOLA Calculator Estimated Delivery Date Method Current WG Current Estimate 07/24/19 LMP (Certain) 36w 2d Expected Delivery Route/Plan Labor Preferences- labor support person: Leonardo pain management options preferred: epidural cut cord/dad catch: yes : yes PP control planned: [] discussed possible routes of delivery and associated risks: [] special requests: [] Specific Issue/Plans flu vaccine: given tdap vaccine: given rhogam: none LARC form signed: yes movement and labor precautions reviewed. Problem list reviewed and updated with the most current plan of care details and appropriate orders placed. Relevant counseling for the gestational age provided. Continue routine care and follow up unless otherwise noted in visit notes/problem list details Initial Weight: 283 lb Date EGA Weight BP Urine Prot Glucose FHR FuHt Pres Dilation Effaced St Visit Note 01/18/19 13w 2d 277 lb (-6 lb) 124/86 150 02/17/19 17w 4d 272 lb 6 oz (-10 lb 10 oz) 120/86 Negative Negative 150 some nausea still no vb cramping, 03/15/19 21w 2d 274 lb 8 oz (-8 lb 8 oz) 130/84 Negative Negative 155 No VB, LOF. No longer with nausea. FU for anatomy US tomorrow. 04/12/19 25w 2d 276 lb 4 oz (-6 lb 12 oz) 124/82 Negative Negative 140 no vb lof good fm no reg ctx 04/24/19 27w 0d 276 lb 2 oz (-6 lb 14 oz) 118/78 Negative Negative 140 Sm- no vb lof good fm no regular ctx cbc gct 05/04/19 28w 3d 275 lb 6 oz (-7 lb 10 oz) 130/90 122/88 Negative Negative 148 MH-work in for itching of hands and feet since last night. Good FM. NO VB, LOF, CTX. Pre E labs and bile acids. Growth US 32 week and NST wkly at 32 wks. 05/05/19 28w 4d 276 lb (-7 lb) 122/78 Negative Negative SM- discussed possible cholestasis diagnosis. see problem list details. 05/19/19 30w 4d 277 lb 6 oz (-5 lb 10 oz) 122/80 Negative Negative 06/02/19 32w 4d 280 lb (-3 lb) 110/90 Negative Negative 145 SM- no vb lof good fm no regular ctx check CMP today. doing well no itching. reviewed testing 06/16/19 34w 4d 277 lb (-6 lb) 148/98 132/90 145 36 SM- no vb lof good fm no reg ctx check cmp today, plan BMZ in 2 weeks SM- no vb lof good fm no reg ctx elevated bp no symptoms check pree panel and start home bp monitoring and bmz now 06/23/19 35w 4d 275 lb (-8 lb) 136/90 145 SM- no vb lof good fm no regular ctx bps mildly elevated at home. 06/28/19 36w 2d 274 lb 6 oz (-8 lb 10 oz) 129/85 Negative Negative 140 37 SM- no vb lof good fm no regular ctx plan IOL 37 weeks. Notes Visit Date: 06/28/19 ??No visit notes to display Visit Date: 06/23/19 ??No visit notes to display Visit Date: 06/16/19 ??No visit notes to display Visit Date: 06/02/19 ??No visit notes to display Visit Date: 05/19/19 ??No visit notes to display Visit Date: 05/05/19 ??No visit notes to display Visit Date: 05/04/19 ??No visit notes to display Visit Date: 04/24/19 ??No visit notes to display Visit Date: 04/12/19 ??No visit notes to display Visit Date: 03/15/19 ??No VB, LOF. No longer with nausea. FU for anatomy US tomorrow. ??CRISTA Neal on 03/15/19 Visit Date: 02/17/19 ??some nausea still no vb cramping, ??Roya Robertson MD on 02/17/19 Visit Date: 01/18/19 ??No visit notes to display ACOG First Trimester First Trimester: Desire for , Alcohol, Tobacco Cessation, Illicit/Recreational Drug/Substance Use, Intimate Partner Violence, Barriers to care, Unstable Housing, Communication Barriers, Environmental/Work Hazards, Anticipated Course of Care, Toxoplasmosis Precations, Use of Any medications, Sexual activity, Exercise, Dental Care, Sauna/Hot tub use, Seat Belt use, Childbirth classes/Hospital facilities, , Travel, Indications for US and Screening for Aneuploidy Second Trimester Second Trimester: Signs and Symptoms of Labor, Selecting a care provider, Reproductive Life Planning, Care Planning, Tobacco Cessation, Depression/Anxiety and Intimate Partner Violence Third Trimester Third Trimester: Pain Management Plans, Labor support person(s), Immediate Larc, Movement Monitoring and Feeding Yes ; discussed Trial of Labor after Counseling or discussed Circumcision preference Diagnostics Diagnostics Diagnostics Hgb 12.0 g/dL (12.0-15.0) 06/16/19 Hct 36.2 % (37-47) L 06/16/19 Details: HIV: Urine Culture: Sequential Screen: NIPT Screen: ROS Const Reports system reviewed and no additional complaints, except as docu Card Reports system reviewed and no additional complaints, except as docu Resp Reports system reviewed and no additional complaints, except as docu GI Reports system reviewed and no additional complaints, except as docu, Reports nausea Reports system reviewed and no additional complaints, except as docu Musc Reports system reviewed and no additional complaints, except as docu Exam Const General: cooperative, healthy appearing, comfortable, anxious [facility] Head: normal to inspection Nose: external nose normal Face and sinus: normal facial exam Neck Neck: normal visual inspection, full ROM, no lymphadenopathy Thyroid: thyroid normal Chest Chest palpation & inspection: normal inspection of the chest Resp Effort & Inspection: normal respiratory effort GI Inspection: normal to inspection Palpation: soft, other (gravid uterus) Other: vertex and appropriate size for gestational age Other: Cervical Exam: Extrem General: pedal edema Results POC Urinalysis 2 Dip (Clinic) Office Urine Glucose Negative Last Edit by Brinda Burrell on 06/28/19 11:31 Office Urine Protein Negative Last Edit by Brinda Burrell on 06/28/19 11:31 Assessment & Plan Problems 1. Elevated blood pressure affecting in third trimester, antepartum O16.3 home bp monitoring, reviewed preeclampsia precautions handout given, labs weekly. plan delivery at 37. BMZ 06/16- 2. Cholestasis during O26.619; K83.1 MFM consult. 2x weekly testing BPP. Actigall. deliver at 37, weekly CMP. Liver enzymes normal week on 06/09. BPP normal on 06/08. Growth in 4 weeks 3. Abnormal glucose affecting O99.810 normal 3gtt 4. Bacteriuria during O99.89; R82.71 treated, repeat culture-neg 5. Obesity affecting in second trimester O99.212 1 tm glucola nl, encourage healthy weight gain 6. Supervision of high risk , antepartum O09.90 PRR MARIOLA 07/24/19 girl deana Spouse Leonardo 7. 36 weeks gestation of Z3A.36 Discussed genetic, carrier and NTD-declined. MFM Anatomy US normal FU with adequate growth. Patient presents IOL, plan management for , pitocin/AROM after [place] Pain management: plans epidural. GBS negativee. Management of any complications: GHTN, cholestasis I have reviewed the [facility] and made any clinically relevant updates. Orders Orders: POC Urinalysis 2 Dip (Clinic) Today Culture, Group B Streptococcus Today O09.90 Coding Level of Care Code OB Routine Diagnoses Elevated blood pressure affecting in third trimester, antepartum O16.3 Cholestasis during O26.619; K83.1 Abnormal glucose affecting O99.810 Bacteriuria during O99.89; R82.71 Obesity affecting in second trimester O99.212 ??Trimester: second trimester Supervision of high risk , antepartum O09.90 36 weeks gestation of Z3A.36 ??Weeks of gestation: 36 weeks
[2019-07-03] MEDS: Lactated Ringers 500 ML 999 ML IV ×2 (14:13→18:51)
[2019-07-03] MEDS: Terbutaline 1 MG/ML Vial 0.25 MG SC (15:03)
[2019-07-03] MEDS: Ondansetron 4 MG/2 ML Vial IV (15:24)
[2019-07-03] MEDS: Ketorolac 30 MG/ML Syringe IV ×2 (15:28→22:02)
--- NOTE | 2019-07-03 15:33 | PCM.OPRPT ---
Problem List (1) Abnormal glucose affecting Status: Acute Comment: normal 3gtt (2) Bacteriuria during Status: Acute Comment: treated, repeat culture-neg (3) Cholestasis during Status: Acute Comment: MFM consult. 2x weekly testing BPP. Actigall. deliver at 37, weekly CMP. Liver enzymes normal week on 06/09. BPP normal on 06/08. Growth in 4 weeks (4) Elevated blood pressure affecting in third trimester, antepartum Status: Acute Comment: home bp monitoring, reviewed preeclampsia precautions handout given, labs weekly. plan delivery at 37. BMZ 06/16- (5) Obesity affecting Status: Acute Qualifiers: Comment: 1 tm glucola nl, encourage healthy weight gain (6) Status: Acute Qualifiers: Comment: Discussed genetic, carrier and NTD-declined. MFM Anatomy US normal FU with adequate growth. (7) Supervision of high risk , antepartum Status: Acute Comment: PRR MARIOLA 07/24/19 girl deana Spouse Leoanrdo Delivery Classification: Stat Final MARIOLA: 07/24/19 Gestational age: 37 Weeks and 0 Days automobile sales representative: Faustino Celaya Type of Anesthesia:: General Special Medications: alexandra Date of Procedure: 07/03/19 Pre-Operative Diagnosis: iol cholestasis, GHTN Post-Operative Diagnosis: same Indications for : Suspected Abruptio Placenta, Distress Description of Procedure: Patient was induced secondary to cholestasis and gestational hypertension. Patient was 6 cm and developed category 3 tracing that did not improve with turning off Pitocin giving IV fluids change in positions were adding oxygen. Patient was given terbutaline and taken back to the back to be reevaluated and continued to have persistent late decelerations into the 60s and therefore the decision was made for immediate section. Patient did not have an epidural placed and therefore proceeded with general anesthesia. Doshi catheter was placed. The patient was placed in the dorsal supine position with leftward tilt. Patient was prepped with splash betadine and draped with sterile drapes. Pfannenstiel skin incision was made with the scalpel and carried through to the underlying layer of fascia with the scalpel. Fascia was nicked in the midline and the incision extended laterally. The rectus bellies were dissected off superiorly and inferiorly with out complication both sharply and bluntly. The peritoneum was entered digitally. The incision was stretched and a low transverse uterine incision was made with the scalpel. The 's head was delivered atraumatically followed by the anterior and posterior shoulders without complication the rest of the delivered. The cord was clamped and cut and the was handed off to awaiting nurse. The placenta was delivered spontaneously immediately following and was noted to be intact and have a three-vessel cord. The uterus was exteriorized cleared of all clots and debris, and the incision was closed in a double layer closure using #1 Monocryl. Alexandra was applied to the incision due to surface bleeding and obtain hemostasis. The ovaries and fallopian tubes were noted to be within normal limits. The uterus was returned to the maternal abdomen and gutters were cleared of all clots and debris. The peritoneum was closed with 3-0 Monocryl in a running fashion. Gloves were changed prior to fascial closure. Fascia was closed with 0 PDS in a running fashion. Subcutaneous tissue was copiously irrigated and the skin was closed with 3-0 Monocryl in a subcuticular fashion. Mepilex dressing was applied without complication. Patient was taken to recovery in stable condition. It was discussed with the patient that based on the clinical information obtained during this encounter, combined with her history, at this time I would recommend cesareans most likely for future deliveries if further pregnancies are desired. Amniotic Membrane Rupture Type: Artificial Amniotic Fluid Description: Clear Placenta Disposition: [facility] Specimen(s) sent to pathology: placenta Drain: Doshi to straight drain Cord Entanglement: Around neck x 1, loose Cord Vessel Description: 3 Vessels Esitmated Blood Loss (ml): 900 Infant Gender: Female (1 minute): 6 (5 minute): 9 Delayed cord clamping: No Antibiotic Given: Ancef 3 grams IV x1, Zithromax 500 mg/5 mL X1 Complications: None - Admit VTE Documentation VTE Present on Admission: No VTE Mechan Device Prophylaxis: SCD's Multi Select Codes - Urinary/Genital Urinary/Genital CPT Codes: 67447 Delivery [facility]
[2019-07-03] MEDS: Oxytocin 30 units/NS 500 ml 30 UNITS/500 ML IV.SOLN 167 UNITS IV (16:49)
[2019-07-03] MEDS: HYDROmorphone 1 MG/ML Syringe IV (17:22)
[2019-07-03] MEDS: Lactated Ringers 1,000 ML 100 ML IV (18:15)
--- NOTE | 2019-07-03 20:03 | NURSING ---
Late entries due to [employer] being non-functioning during shift. RN at bedside throughout labor due to non-functioning central monitoring system. See monitoring strip for additional documentation made at time of patient care.
[2019-07-03] MEDS: Enoxaparin 40 MG/0.4 ML Syringe SC (22:03)
[2019-07-03] MEDS: Cefazolin 1 GM/50 ML BAG IV (23:30)
[2019-07-04] MEDS: Ketorolac 30 MG/ML Syringe IV ×4 (03:56→21:37)
[2019-07-04 04:02] VITALS: BP 133/73; PULSE 78; RESP 16; TEMP 36.9
[2019-07-04 05:13] LABS: Hematocrit 30.7 % (37-47); Hemoglobin 10.2 g/dL (12.0-15.0); Mean Corp Hgb Conc 33.2 g/dL (32-36); Mean Corpuscular Hgb 27.9 pg (27.0-32.0); Mean Corpuscular Volume 84.1 fL (81-99); Mean Platelet Vol. 10.6 fl (6.2-12.0); Platelet Count 196 K/mm3 (150-450); RBC Distribution Width CV 13.6 % (11.6-14.6); RBC Distribution Width SD 41.7 fl (35.1-43.9); Red Blood Count 3.65 M/mm3 (4.2-5.4); White Blood Count 14.9 K/mm3 (4.4-11.0)
[2019-07-04] MEDS: Cefazolin 1 GM/50 ML BAG IV (06:27)
--- NOTE | 2019-07-04 08:09 | PN.OBGYN_ITS ---
Subjective: Doing well, no complaints.Pain controlled. Denies CP, SOB, N,V. Ambulating well, tolerating po. Lochia moderate, going well. - Physical Exam Vitals/I&O's: Vital Signs Temp Pulse Resp BP Pulse Ox 98.5 F 78 16 133/73 H 99 07/04/19 04:02 07/04/19 04:02 07/04/19 04:02 07/04/19 04:02 07/03/19 20:40 Oxygen Delivery Method Room Air Weight: 278 lb Body Mass Index (BMI) 46.2 Intake and Output for Last 24 Hours 07/02/19 07/03/19 07/04/19 23:59 23:59 23:59 Intake Total 3669.37 / 3669.37 985 / 985 Output Total 1600 / 1600 1400 / 1400 Balance 2068.37 / 2068.37 -415 / -415 General: Alert, Oriented x3 Abdomen: Soft, Non-Distended, - - FF below U. Dressing dry and intact Laboratory Results 07/03/19 07:55: WBC 10.5, RBC 4.21, Hgb 11.6 L, Hct 35.3 L, MCV 83.8, MCH 27.6, MCHC 32.9, RDW Std Deviation 41.1, RDW Coeff of Kiera 13.4, Plt Count 259, MPV 11.1, Immature Gran % (Auto) 0.400, Neut % (Auto) 74.8 H, Lymph % (Auto) 17.2 L, [place] % (Auto) 6.9, Eos % (Auto) 0.5, Baso % (Auto) 0.2, Absolute Neuts (auto) 7.9 H, Absolute Lymphs (auto) 1.81, Nucleated RBC % 0 07/03/19 07:55: Blood Type B POSITIVE, Antibody Screen NEGATIVE 07/04/19 05:05: WBC 14.9 H, RBC 3.65 L, Hgb 10.2 L, Hct 30.7 L, MCV 84.1, MCH 27.9, MCHC 33.2, RDW Std Deviation 41.7, RDW Coeff of Kiera 13.6, Plt Count 196, MPV 10.6 Current Medications Acetaminophen (Tylenol) 1,000 mg PO Q8H PRN PRN PRN Reason: Pain Score 1-3/10;Temp>99.6F Bisacodyl (Dulcolax) 10 mg RECTAL UD PRN PRN Reason: If no BM Enoxaparin Sodium (Lovenox) 40 mg SC BID [facility] Last Admin: 07/03/19 22:03 Dose: 40 mg Documented by: Hydrocortisone (Hytone) 1 applic TOPICAL TID PRN PRN; Protocol PRN Reason: Discomfort Hydromorphone HCl (Dilaudid Inj) 0.5 - 1.5 mg IV Q3H PRN PRN PRN Reason: Pain Score 4-10/10 Stop: 07/04/19 15:58 Last Admin: 07/03/19 17:22 Dose: 1 mg Documented by: Lactated Ringer's () 1,000 mls @ 100 mls/hr IV .Q10H [facility] Last Infusion: 07/04/19 05:18 Dose: Infused Documented by: Naloxone HCl 4 mg/ Dextrose 504 mls @ 0 mls/hr IV .Q0M PRN; Protocol PRN Reason: Respiratory depression Ketorolac Tromethamine (Toradol (Bkc)) 30 mg IV Q6H [facility] Stop: 07/05/19 09:58 Last Admin: 07/04/19 03:56 Dose: 30 mg Documented by: Methylergonovine Maleate (Methergine) 0.2 mg IM X1 PRN PRN Reason: Uterine Atony Naloxone HCl (Narcan) 0.02 mg IV Q1M PRN PRN Reason: RR <10 and pt unresponsive Naproxen (Naprosyn) 250 - 500 mg PO Q8H PRN PRN PRN Reason: Pain Score 1-3/10 Ondansetron HCl (Zofran) 4 mg IV Q4H PRN PRN PRN Reason: Nausea Oxycodone HCl (Oxyir) 5 - 10 mg PO Q4H PRN PRN PRN Reason: Pain Score 4-10/10 Prochlorperazine Edisylate (Compazine Iv) 10 mg IV Q6H PRN PRN PRN Reason: NAUSEA Senna/Docusate Sodium (Senokot-S, Jenn-Colace) 0 tablet PO DAILY PRN PRN Reason: Constipation Simethicone (Mylicon) 80 mg PO PCHS PRN PRN Reason: Indigestion/stomach pain Sodium Chloride () 5 - 15 ml IV UD PRN PRN Reason: SALINE FLUSH Medical Necessity - Tobacco Use Smoking Status: Never smoker Assessment/Plan All Active Problems (Last Reviewed 06/28/19 @ 10:39 by Brinda Burrell) Elevated blood pressure affecting in third trimester, antepartum (Acute) Cholestasis during (Acute) Abnormal glucose affecting (Acute) Bacteriuria during (Acute) Obesity affecting (Acute) Supervision of high risk , antepartum (Acute) (Acute) Elevated liver enzymes (Resolved) s/p LTCS PPD # 1 1. routine post care 2. breast feeding- support given 3. rh positive 4. rubella immune
[2019-07-04 08:36] VITALS: BP 121/64; PULSE 63; RESP 18; TEMP 37; O2SAT 97
[2019-07-04] MEDS: 0.9% Saline Lock 10 ML Syringe IV ×3 (10:11→21:38)
[2019-07-04] MEDS: Enoxaparin 40 MG/0.4 ML Syringe SC ×2 (10:11→21:38)
[2019-07-04 11:57] VITALS: BP 127/70; PULSE 78; RESP 16; TEMP 37.1; O2SAT 95
--- NOTE | 2019-07-04 12:11 | NURSING ---
4 Abrasions noted of left side of abdomen. Patients states they are from the [employer] monitoring system.
[2019-07-04 16:15] VITALS: BP 126/69; PULSE 72; RESP 16; TEMP 37.5
[2019-07-04 20:30] VITALS: BP 123/66; PULSE 94; RESP 18; TEMP 37.1
[2019-07-05 01:15] VITALS: BP 126/57; PULSE 84; RESP 18; TEMP 37.2
[2019-07-05] MEDS: Ketorolac 30 MG/ML Syringe IV ×2 (04:14→10:13)
[2019-07-05] MEDS: 0.9% Saline Lock 10 ML Syringe IV (04:14)
[2019-07-05 08:08] VITALS: BP 116/72; PULSE 64; RESP 16; TEMP 36.4; O2SAT 99
--- NOTE | 2019-07-05 08:20 | PN.OBGYN_ITS ---
Subjective: Doing well, no complaints.Pain controlled. Denies CP, SOB, N,V. Ambulating well, tolerating po. Lochia moderate, going well. - Physical Exam Vitals/I&O's: Vital Signs Temp Pulse Resp BP Pulse Ox 97.5 F L 64 16 116/72 99 07/05/19 08:08 07/05/19 08:08 07/05/19 08:08 07/05/19 08:08 07/05/19 08:08 Oxygen Delivery Method Room Air Weight: 278 lb Body Mass Index (BMI) 46.2 Intake and Output for Last 24 Hours 07/03/19 07/04/19 07/05/19 23:59 23:59 23:59 Intake Total 3669.37 / 3669.37 985 / 985 Output Total 1600 / 1600 1700 / 1700 Balance 2069.37 / 2069.37 -715 / -715 General: Alert, Oriented x3 Abdomen: Soft, Non-Distended, - - FF below U. Dressing dry and intact Current Medications Acetaminophen (Tylenol) 1,000 mg PO Q8H PRN PRN PRN Reason: Pain Score 1-3/10;Temp>99.6F Bisacodyl (Dulcolax) 10 mg RECTAL UD PRN PRN Reason: If no BM Enoxaparin Sodium (Lovenox) 40 mg SC BID [facility] Last Admin: 07/04/19 21:38 Dose: 40 mg Documented by: Hydrocortisone (Hytone) 1 applic TOPICAL TID PRN PRN; Protocol PRN Reason: Discomfort Naloxone HCl 4 mg/ Dextrose 504 mls @ 0 mls/hr IV .Q0M PRN; Protocol PRN Reason: Respiratory depression Ketorolac Tromethamine (Toradol (Bkc)) 30 mg IV Q6H [facility] Stop: 07/05/19 09:58 Last Admin: 07/05/19 04:14 Dose: 30 mg Documented by: Methylergonovine Maleate (Methergine) 0.2 mg IM X1 PRN PRN Reason: Uterine Atony Naloxone HCl (Narcan) 0.02 mg IV Q1M PRN PRN Reason: RR <10 and pt unresponsive Naproxen (Naprosyn) 250 - 500 mg PO Q8H PRN PRN PRN Reason: Pain Score 1-3/10 Ondansetron HCl (Zofran) 4 mg IV Q4H PRN PRN PRN Reason: Nausea Oxycodone HCl (Oxyir) 5 - 10 mg PO Q4H PRN PRN PRN Reason: Pain Score 4-10/10 Prochlorperazine Edisylate (Compazine Iv) 10 mg IV Q6H PRN PRN PRN Reason: NAUSEA Senna/Docusate Sodium (Senokot-S, Jenn-Colace) 0 tablet PO DAILY PRN PRN Reason: Constipation Simethicone (Mylicon) 80 mg PO PCHS PRN PRN Reason: Indigestion/stomach pain Sodium Chloride () 5 - 15 ml IV UD PRN PRN Reason: SALINE FLUSH Last Admin: 07/05/19 04:14 Dose: 10 ml Documented by: Medical Necessity - Tobacco Use Smoking Status: Never smoker Assessment/Plan All Active Problems (Last Reviewed 06/28/19 @ 10:39 by Brinda Burrell) Elevated blood pressure affecting in third trimester, antepartum (Acute) Cholestasis during (Acute) Abnormal glucose affecting (Acute) Bacteriuria during (Acute) Obesity affecting (Acute) Supervision of high risk , antepartum (Acute) (Acute) Elevated liver enzymes (Resolved) s/p LTCS PPD # 2 1. routine post care 2. breast feeding- support given 3. rh positive 4. rubella immune 5. home today
--- NOTE | 2019-07-05 08:21 | DCINST_ITS ---
Additional Instructions: If you experience any of the following, contact your healthcare provider. * Bleeding that soaks a pad every hour for 2 hours * Fever 100.4 or higher * Unrelieved incision or abdominal pain * Swelling, redness, discharge or bleeding from your incision or episiotomy site * Your incision begins to separate * Problems urinating (including inability to urinate or burning while urinating). * Visual changes * Severe headache * Flu-like symptoms * Pain or redness in one of both of your breasts * Pain, warmth, tenderness or swelling in your legs, especially the calf area * Frequent nausea and vomiting * Symptoms of depression or anxiety If you experience any of the following, call 911 or go to the nearest Emergency Room. * Chest pain * Problems breathing * Seizure activity * Partial or complete paralysis of a body part, slurred speech, weakness or drooping of the face, or a sudden inability to walk or hold your balance Allergies/Adverse Reactions: Allergies coconut Allergy (Mild, Verified 06/28/19 10:39) Hives Penicillins Allergy (Mild, Verified 06/28/19 10:39) Nausea apricot Allergy (Verified 06/28/19 10:39) Unknown Beef Containing Products Adverse Reaction (Verified 06/28/19 10:39) Diarrhea Medications to take at Discharge multivitamin no.47-iron fum 27 mg-folate no.1 1 mg-dha 300 mg capsule 1 cap PO DAILY cap 12/21/18 blood pressure kit-extra large See Rx Instructions .ROUTE .MEDSUPPLY #1 ea 06/16/19 Ursodiol 300 mg PO BID 07/03/19 Naproxen [Naprosyn] 500 mg PO BID PRN PRN #60 tab 07/05/19 Oxycodone HCl/Acetaminophen [Percocet 5/325] 1 - 2 tablet PO Q4H PRN PRN 7 Days #28 tablet 07/05/19 The following prescriptions were given: Naproxen [Naprosyn] 500 mg PO BID PRN PRN #60 tab PRN Reason: Pain Transmission Status: Pending to [facility] Oxycodone HCl/Acetaminophen [Percocet 5/325] 1 - 2 tablet PO Q4H PRN PRN 7 Days #28 tablet PRN Reason: Pain Transmission Status: Sent to [facility] Follow-Up: Call to make an appointment with your doctor for an incision check in 1-2 weeks. You will also need a 6 week post- follow up appointment. Test results from this visit will be discussed in further detail at your follow- up appointment, if applicable. Primary Care Physician: Care Physician,No Primary [Primary Care Provider] -
[2019-07-05] MEDS: Enoxaparin 40 MG/0.4 ML Syringe SC (10:13)
[2019-07-06 13:40] LABS: Pathology Specimen OB SEE PATHOLOGY REPORT
== END 2019-07-05 11:50 | disposition home or self-care (01) | DRG 786 ==
PROVIDERS: Admitting Provider Obstetrics & Gynecology; Referring Provider Obstetrics & Gynecology; Visit Provider Obstetrics & Gynecology
DX: O76 Abnormality in fetal heart rate and rhythm complicating labor and delivery (principal); K83.1 Obstruction of bile duct; O26.62 Liver and biliary tract disorders in childbirth; Z3A.37 37 weeks gestation of pregnancy; Z37.0 Single live birth; O13.4 Gestational [pregnancy-induced] hypertension without significant proteinuria, complicating childbirth; E66.9 Obesity, unspecified; O99.214 Obesity complicating childbirth; O69.81X0 Labor and delivery complicated by cord around neck, without compression, not applicable or unspecified
CPT/HCPCS: 59025; 59050; 85025; 85027; 86850; 86900; 86901; 88307; 99218; J7120; A4216; G0378; J2405